=== PATIENT | female | born 2000 | race Caucasian/White ===

== ENCOUNTER → 2023-03-03 15:44 | Outpatient (CLI) | payer OTHER, SELFPAY ==
[2023-03-03 21:06] LABS: TSH w/ Reflex to FT4 0.71 uIU/mL (0.47-4.68)
[2023-03-05 10:38] LABS: Varicella IgG Antibody 843 index (Immune >165)
== END ==
PROVIDERS: Obstetrics & Gynecology; Referring Provider Specialist; Visit Provider Specialist
DX: O09.30 Supervision of pregnancy with insufficient antenatal care, unspecified trimester (principal); Z3A.00 Weeks of gestation of pregnancy not specified
CPT/HCPCS: 36415; 84443; 86787

== ENCOUNTER → 2023-03-13 13:16 | Outpatient (CLI) | payer OTHER, SELFPAY ==
[2023-03-13 14:36] LABS: Hematocrit 31.1 % (36-46)
[2023-03-13 15:01] LABS: GTT (PREG) 1 Hour PP 50gm Dose 88 mg/dL (76-139)
== END ==
PROVIDERS: Referring Provider Specialist; Visit Provider Specialist
DX: Z34.02 Encounter for supervision of normal first pregnancy, second trimester (principal); Z3A.27 27 weeks gestation of pregnancy; O26.899 Other specified pregnancy related conditions, unspecified trimester; Z67.91 Unspecified blood type, Rh negative
CPT/HCPCS: 36415; 82950; 85014; 85018; 86850

== ENCOUNTER → 2023-04-26 15:02 | Outpatient (CLI) | payer OTHER, SELFPAY | PROVIDERS: Visit Provider Obstetrics & Gynecology | DX: Z34.00 Encounter for supervision of normal first pregnancy, unspecified trimester (principal); Z3A.34 34 weeks gestation of pregnancy | CPT/HCPCS: 87086 ==

== ENCOUNTER 2023-05-06 16:25 | Observation (INO) | payer OTHER, SELFPAY ==
[2023-05-06 16:56] LABS: Add Manual Diff / Slide Review NO; Basophils Absolute Auto 0 /uL (0-100); Basophils Percent Auto 0.3 % (0-2); Eosinophils Absolute Auto 0 /uL (0-450); Eosinophils Percent Auto 0.5 % (2-4); Hemoglobin 11.2 g/dL (12.0-16.0); Lymphocytes Absolute Auto 1900 /uL (1100-4500); Lymphocytes Percent Auto 18.9 % (25-40); Mean Corpuscular HGB Conc 35.1 % (30-36); Mean Corpuscular Hemoglobin 32.2 PG (26-34); Mean Corpuscular Volume 91.6 fL (80-100); Monocytes Absolute Auto 1000 /uL (0-900); Monocytes Percent Auto 10.2 % (3-14); Neutrophils Absolute Auto 7300 /uL (1500-7000); Neutrophils Percent Auto 70.1 % (50-75); Platelet Count 258 X10^3/uL (150-400); Red Blood Cell Count 3.49 X10^6/uL (4.0-5.2); Red Cell Distribution Width 13.4 % (11.6-14.8); White Blood Cell Count 10.3 X10^3/uL (4.5-11.0)
[2023-05-06 17:08] LABS: Appearance Urine UA CLEAR; Bilirubin Urine UA NEGATIVE (NEGATIVE); Color Urine UA YELLOW; Glucose Urine UA NEGATIVE (Negative); Ketones Urine UA NEGATIVE (NEGATIVE); Leukocyte Esterase Urine UA NEGATIVE (NEGATIVE); Nitrite Urine UA NEGATIVE (Negative); Occult Blood Urine UA NEGATIVE (Negative); Protein Urine UA NEGATIVE (Negative); Specific Gravity Urine UA <=1.005 (1.000-1.035); Urobilinogen Urine UA 0.2 E.U./dL (0.2)
[2023-05-06 17:10] LABS: Aspartate Aminotransferase 18 IU/L (14-36); Blood Urea Nitrogen 3 mg/dL (7-17); Estimated Glomerular Filt Rate > 60 mL/min (>60); Uric Acid 3.7 mg/dL (2.5-6.2)
[2023-05-06 17:11] LABS: Creatinine Urine Random 57.8 mg/dL; Protein (Total) Urine Random 14 mg/dL (0-12); Protein Creatinine Ratio Urine 0.24 GRAM/24H
[2023-05-06 17:13] LABS: Alanine Aminotransferase 16 IU/L (<35); Albumin 3.3 g/dL (3.5-5.0); Alkaline Phosphatase 138 U/L (38-126); Aspartate Aminotransferase 18 IU/L (14-36); BUN Creatinine Ratio 6.8 (6-22); Bilirubin Total 0.3 mg/dL (0.2-1.3); Blood Urea Nitrogen 3 mg/dL (7-17); Calcium 8.6 mg/dL (8.4-10.2); Carbon Dioxide 23 mmol/L (22-32); Chloride 106 mmol/L (98-107); Estimated Glomerular Filt Rate > 60 mL/min (>60); Globulin 3.2 g/dL (1.7-4.1); Glucose 84 mg/dL (70-100); HEMOLYSIS < 15 (0-50); Potassium 3.8 mmol/L (3.4-5.1); Sodium 136 mmol/L (137-145); Total Protein 6.5 g/dL (6.3-8.2)
[2023-05-06 17:16] LABS: pH Urine UA 6.5 (4.5-8.0)
[2023-05-06 17:47] LABS: RBC Urine 1-5/HPF (0-5/HPF); WBC Urine 1-5/HPF (0-5/HPF)
[2023-05-06 17:48] LABS: Bacteria Urine Few (2-10); Culture Indicated Urine Cult Not Indicated; Squamous Epithelial Cell Urine 10-30 /HPF (0-5/HPF); Transitional Epi Cells Urine 1-5/HPF (0-5/HPF)
[2023-05-06] MEDS: ACETAMINOPHEN 325 MG TABLET 975 MG PO (18:12)
--- NOTE | 2023-05-06 18:40 | PM.OBTRLD ---
Visit Information Visit Information Date of evaluation: 05/06/23 Primary OB Provider: Yeyo Martinez On-call OB Provider: Yeyo Martinez Reason for Evaluation: Yes other Comments/Additional reasons for admission: D[place] present to the [facility] [place] 2[place] now at 36+2 wks EGA for evaluation of persistent headache and increased swelling. She denies any visual changes or right upper quadrant pain. Discussions with the patient regarding sodium consumption have not altered her dietary intake and we again had a discussion that as long as she continues to take in significant amounts of sodium in her diet, she can expect swelling. She apparently has an for [place] fries and had biscuits and gravy breakfast this morning. Her baby remains active and she denies contractions, bleeding, or change in her discharge. Vital Signs Vital Signs: BP: 120/60, 129/74 P: 76 T: 36.5C PFS Medical History (Updated 05/06/23 @ 18:50 by Yeyo Martinez MD) Acne Anxiety Depression Surgical History (Updated 03/10/23 @ 18:32 by China Chowdary) Anesthesia [place] teeth extracted Family History (Updated 03/10/23 @ 18:33 by Cihna Chowdary) Mother No problems noted. Father No problems noted. Grandfather No problems noted. Social History marital status: number of children: 0 household members: spouse lives independently: Yes caregiver/support person: No housing: [facility] ([facility]) pets and animals: Yes (cat, puppy) education level: vocational occupational status: unemployed current occupational exposures/hazards: No special adolph needs: No travel history: recent (cross-country move) seatbelt use: sometimes water heater temp set < 120 deg: Yes working smoke detector in home: Yes fire extinguisher in home: No carbon monox detector in home: Yes firearms in home: No Smoking Status: Former smoker (stopped vaping when she learned she was ) Tobacco: How many years used: 5 (off and on) second hand exposure: Yes ( vapes) alcohol intake: former (binge drinking 3-4 days/week prior to ) substance use type: marijuana (agrees not to use while /) during the past year weight has: remained stable well-balanced diet: about half the time daily servings fruits/ve-4 caffeine: Yes (occasional small cup coffee in AM) Type(s) of exercise: walking frequency: 1-2 times per week Review of Systems Review of Systems Narrative: Problem-specific ROS positives included in HPI Exam HENMT Head: normal to inspection, normocephalic and atraumatic Eyes General: appearance normal, both eyes and all related structures Resp Effort & Inspection: normal respiratory effort and able to speak in complete sentences Extrem Right lower extremity: normal to inspection and edema Details: 1+ Left lower extremity: normal to inspection and edema Details: 1+ Psych Appearance: grossly normal Mental Status: mental status grossly normal Speech and Movement: speech and movement normal Mood: congruent mood Affect: normal affect Attitude: cooperative Thought Process: normal Thought Content: normal Judgment: judgment good Objective Labs 05/06/23 16:48 05/06/23 16:48 Labs: Laboratory Results - last 24 hr 05/06/23 05/06/23 05/06/23 16:35 16:35 16:48 WBC 10.3 RBC 3.49 L Hgb 11.2 L Hct 32.0 L MCV 91.6 MCH 32.2 MCHC 35.1 RDW 13.4 Plt Count 258 Neut % (Auto) 70.1 Lymph % (Auto) 18.9 L [place] % (Auto) 10.2 Eos % (Auto) 0.5 L Baso % (Auto) 0.3 Neut # (Auto) 7300 H Lymph # (Auto) 1900 [place] # (Auto) 1000 H Eos # (Auto) 0 Baso # (Auto) 0 Sodium Potassium Chloride Carbon Dioxide BUN Creatinine Estimated GFR BUN/Creatinine Ratio Glucose Uric Acid Calcium Total Bilirubin AST ALT Alkaline Phosphatase Total Protein Albumin Globulin Albumin/Globulin Ratio Urine Color Yellow Urine Appearance Clear Urine pH 6.5 Ur Specific [place] <=1.005 Urine Protein Negative Urine Glucose (UA) Negative Urine Ketones Negative Urine Occult Blood Negative Urine Nitrate Negative Urine Bilirubin Negative Urine Urobilinogen 0.2 Ur Leukocyte Esterase Negative Urine RBC 1-5/hpf Urine WBC 1-5/hpf Ur Squamous Epith Cells 10-30 /hpf H Ur Transition Epith Cell 1-5/hpf Urine Bacteria Few (2-10) H Ur Culture Indicated? Cult not indicated U Random Total Protein 14 H Urine Creatinine 57.8 Protein/Creatinin Ratio 0.24 05/06/23 05/06/23 16:48 16:48 WBC RBC Hgb Hct MCV MCH MCHC RDW Plt Count Neut % (Auto) Lymph % (Auto) [place] % (Auto) Eos % (Auto) Baso % (Auto) Neut # (Auto) Lymph # (Auto) [place] # (Auto) Eos # (Auto) Baso # (Auto) Sodium 136 L Potassium 3.8 Chloride 106 Carbon Dioxide 23 BUN 3 L 3 L Creatinine 0.43 L 0.44 L Estimated GFR > 60 > 60 BUN/Creatinine Ratio 7.0 6.8 Glucose 84 Uric Acid 3.7 Calcium 8.6 Total Bilirubin 0.3 AST 18 18 ALT 16 Alkaline Phosphatase 138 H Total Protein 6.5 Albumin 3.3 L Globulin 3.2 Albumin/Globulin Ratio 1.0 Urine Color Urine Appearance Urine pH Ur Specific [place] Urine Protein Urine Glucose (UA) Urine Ketones Urine Occult Blood Urine Nitrate Urine Bilirubin Urine Urobilinogen Ur Leukocyte Esterase Urine RBC Urine WBC Ur Squamous Epith Cells Ur Transition Epith Cell Urine Bacteria Ur Culture Indicated? U Random Total Protein Urine Creatinine Protein/Creatinin Ratio Evaluation Evaluation Baseline heart rate: 130 Variability: Marked (>25) monitor accelerations: Present Monitor Decelerations: Absent Diagnosis, Plan/Disposition Final Diagnosis (1) Headache in , antepartum: Status: Acute (2) Leg swelling in in third trimester: Status: Acute Plan/Disposition Plan: BP and PIH/PEC labs all normal. Counselled again re: Na intake Follow-up scheduled for 05/10/2023 OB Disposition: home
== END 2023-05-06 18:40 | disposition home or self-care (01) ==
LOC: LABOR 16:29
PROVIDERS: Admitting Provider Obstetrics & Gynecology; Referring Provider Obstetrics & Gynecology; Visit Provider Obstetrics & Gynecology
DX: O26.893 Other specified pregnancy related conditions, third trimester (principal); M79.89 Other specified soft tissue disorders; R51.9 Headache, unspecified; Z3A.36 36 weeks gestation of pregnancy
CPT/HCPCS: 36415; 59025; 59050; 80053; 81001; 82570; 84156; 84450; 84550; 85025; G0378; G0379

== ENCOUNTER → 2023-05-12 15:30 | Outpatient (CLI) | payer OTHER, SELFPAY ==
[2023-05-13 15:03] LABS: Strep Grp B PCR NEG for Grp B Strep
== END ==
PROVIDERS: Visit Provider Obstetrics & Gynecology
DX: Z34.93 Encounter for supervision of normal pregnancy, unspecified, third trimester (principal); Z3A.37 37 weeks gestation of pregnancy
CPT/HCPCS: 87653

== ENCOUNTER 2023-05-15 11:17 | Inpatient (IN) | payer OTHER, SELFPAY ==
--- NOTE | 2023-05-15 12:10 | P.HPOB_ITS ---
OB HPI Date/Time Date of admission: 05/15/23 Date Patient Seen: 05/15/23 Time Patient Seen: 12:10 History of Present Condition Chief complaint: labor : 1 Para: 0 Estimated Date of Delivery: 06/01/23 Estimated Gestational Age (weeks): 37 Narrative: Leah Madrid is a 22 year old female who presents to labor and delivery with spontaneous rupture membranes at 10:40 a.m. in early labor. History of Present care: limited care, initiated at week # (19), number of visits (9) and pounds weight gain (45) Dating criteria: LMP confirmed by 2nd trimester US Ultrasounds: normal mid trimester US Obstetrical complications: none Medical complications: none Preadmission Labs Blood type: A (-) negative -: Antibody screen: negative, GBS status: negative, HBsAG: negative, HIV: negative and RPR/VDLR: negative -: Chlamydia screen: not detected and Gonorrhea screen: not detected -: Rubella: immune and Varicella: immune HCAB: negative Cell-free DNA: Normal female 1 hr GTT: 88 Evaluation Evaluation Baseline heart rate: 140 Variability: Moderate (11-25) monitor accelerations: Present Monitor Decelerations: Absent Contraction Frequency (minutes): 8 Uterine Contraction Intensity: Moderate Category of Tracing: Reactive Status: Category l Dilation (cm): 2 Effacement (%): 70 station: -2 Non-invasive Membranes Rupture Test: positive PFSH Medical History (Updated 05/12/23 @ 15:48 by Yeyo Martinez MD) Acne Anxiety Depression Surgical History (Updated 03/10/23 @ 18:32 by China Chowdary) Anesthesia [place] teeth extracted Family History (Updated 03/10/23 @ 18:33 by China Chowdary) Mother No problems noted. Father No problems noted. Grandfather No problems noted. Social History marital status: number of children: 0 household members: spouse lives independently: Yes caregiver/support person: No housing: condominium ([facility]) pets and animals: Yes (cat, puppy) education level: vocational occupational status: unemployed current occupational exposures/hazards: No special adolph needs: No travel history: recent (cross-country move) seatbelt use: sometimes water heater temp set < 120 deg: Yes working smoke detector in home: Yes fire extinguisher in home: No carbon monox detector in home: Yes firearms in home: No Smoking Status: Former smoker Tobacco: How many years used: 5 (off and on) second hand exposure: Yes ( vapes) alcohol intake: former (binge drinking 3-4 days/week prior to ) substance use type: marijuana (agrees not to use while /) during the past year weight has: remained stable well-balanced diet: about half the time daily servings fruits/ve-4 caffeine: Yes (occasional small cup coffee in AM) Type(s) of exercise: walking frequency: 1-2 times per week Meds Home Medications and Allergies Home Medications Medication Instructions Recorded Confirmed Type prenat.vits,atif,ncg-irbe-dudua 1 tab PO DAILY 02/22/23 05/15/23 History calcium carbonate 200 mg calcium 200 mg PO QID PRN Heartburn 04/12/23 05/15/23 History (500 mg) chewable tablet (Tums) omeprazole 40 mg capsule,delayed 40 mg PO DAILY #30 caps 04/26/23 05/15/23 Rx release Allergies Allergy/AdvReac Type Severity Reaction Status Date / Time No Known Drug Allergies Allergy Verified 05/15/23 13:06 Review of Systems Review of Systems Narrative: Patient denies headaches, scotomata, epigastric pain. Some light pink with discharge after rupture membranes. Good movement. No fevers. OB Exam Vital signs Blood Pressure: 137/82 Pulse Rate: 85 Temperature: 96.4 F Narrative Exam Narrative: HEENT exam within normal limits. Lungs are clear to auscultation percussion. Heart is regular rate and rhythm no S3-S4 murmurs. Abdomen is soft, nontender. Fetus is vertex. Extremities without edema and nontender. Objective Labs 05/15/23 12:40 Assessment and Plan Assessment and Plan Assessment and Plan narrative: 37 week 4 day 1st with spontaneous rupture membranes. Not clearly in active labor at this time. If the patient has not started into active labor in a few hours we will start Pitocin augmentation.
[2023-05-15 12:41] VITALS: BP 126/60
[2023-05-15 12:52] LABS: Add Manual Diff / Slide Review NO; Basophils Absolute Auto 100 /uL (0-100); Basophils Percent Auto 0.4 % (0-2); Eosinophils Absolute Auto 0 /uL (0-450); Eosinophils Percent Auto 0.3 % (2-4); Hematocrit 33.9 % (36-46); Hemoglobin 11.8 g/dL (12.0-16.0); Lymphocytes Absolute Auto 2200 /uL (1100-4500); Lymphocytes Percent Auto 16.6 % (25-40); Mean Corpuscular HGB Conc 34.8 % (30-36); Mean Corpuscular Hemoglobin 31.2 PG (26-34); Mean Corpuscular Volume 89.8 fL (80-100); Monocytes Absolute Auto 1000 /uL (0-900); Monocytes Percent Auto 7.3 % (3-14); Neutrophils Absolute Auto 10000 /uL (1500-7000); Neutrophils Percent Auto 75.4 % (50-75); Platelet Count 264 X10^3/uL (150-400); Red Blood Cell Count 3.77 X10^6/uL (4.0-5.2); Red Cell Distribution Width 13.4 % (11.6-14.8); White Blood Cell Count 13.2 X10^3/uL (4.5-11.0)
[2023-05-15 13:22] VITALS: BP 137/82; PULSE 85; TEMP 35.8
[2023-05-15] MEDS: LACTATED RINGERS 1,000 ML 100 ML IV ×2 (15:31→19:49)
[2023-05-15] MEDS: OXYTOCIN PREMIX 30 UNIT/500 ML PLAST..BAG IV (15:31)
[2023-05-15 15:32] LABS: Add Manual Diff / Slide Review NO; Basophils Absolute Auto 100 /uL (0-100); Basophils Percent Auto 0.4 % (0-2); Eosinophils Absolute Auto 0 /uL (0-450); Eosinophils Percent Auto 0.2 % (2-4); Hematocrit 33.6 % (36-46); Hemoglobin 11.7 g/dL (12.0-16.0); Lymphocytes Absolute Auto 2300 /uL (1100-4500); Lymphocytes Percent Auto 17.6 % (25-40); Mean Corpuscular HGB Conc 34.9 % (30-36); Mean Corpuscular Hemoglobin 31.4 PG (26-34); Mean Corpuscular Volume 90.1 fL (80-100); Monocytes Absolute Auto 900 /uL (0-900); Monocytes Percent Auto 7.1 % (3-14); Neutrophils Absolute Auto 9800 /uL (1500-7000); Neutrophils Percent Auto 74.7 % (50-75); Platelet Count 267 X10^3/uL (150-400); Red Blood Cell Count 3.72 X10^6/uL (4.0-5.2); Red Cell Distribution Width 13.4 % (11.6-14.8); White Blood Cell Count 13.1 X10^3/uL (4.5-11.0)
[2023-05-15 15:47] LABS: Aspartate Aminotransferase 22 IU/L (14-36); Blood Urea Nitrogen 3 mg/dL (7-17); Estimated Glomerular Filt Rate > 60 mL/min (>60); Uric Acid 3.9 mg/dL (2.5-6.2)
[2023-05-15] MEDS: fentaNYL 100 MCG/2 ML INJ IV ×3 (17:17→19:57)
--- NOTE | 2023-05-15 20:32 | PM.OBPNLAB ---
Date/Time Date Patient Seen: 05/15/23 Time Patient Seen: 20:32 Pain Control Pain control: epidural Pelvic Exam Dilation (cm): 8 Effacement (%): 90 station: 0 Amniotic membrane status: Ruptured Contractions Contractions on admission: regular Monitor mode: External Pitocin rate (mU/min): 5 Contraction frequency (min): 3 Contraction duration (min): 1 Contraction pattern: Regular Contraction intensity: Strong/Firm Status status: Category l Heart Rate Baseline: 130 Monitor Accelerations: Present Monitor Decelerations: Absent Monitor Variability: Moderate Assessment and Plan Assessment: active labor Plan: continuous present management Comments: Patient denies headaches, scotomata, epigastric pain. PIH labs are normal.
--- NOTE | 2023-05-15 23:24 | P.PCNOB_ITS ---
Labor & Delivery Delivery date: 05/15/23 Intrapartal Events: None Delivery augmentation: pitocin Delivery monitor: external FHT and external uterine Route of delivery: L&D Laceration Description: Perineal - 1st Degree and Labial (Right did not require suture) Delivery repair: chromic (3-0) Estimated blood loss (mL): 200 Anesthesia Type: Epidural Narrative: Patient arrived on Labor and delivery with spontaneous rupture membranes. She did not go into active labor after 4 hours so Pitocin augmentation was started. Patient received nitrous oxide followed by epidural for pain control. heart tones category 1 to category 2 throughout labor. She progressed to complete and pushing. There were variable decelerations with pushing but overall baby's heart rate remained reassuring. Patient delivered spontaneously, over an intact perineum. The viable female was placed on maternal abdomen. Delayed cord clamping was performed. After the cord was clamped and cut cord bloods were obtained. The placenta delivered spontaneously, intact, with 3 vessels. There were no cervical or vaginal tears. A first-degree perineal midline tear was repaired with 3-0 chromic suture. A superficial right labial tear did not require suturing. Estimated blood loss 200 cc. Both infant mother doing well. [place] Baby 1: gender: Female Presentation: vertex Position: Right Occiput Posterior Placenta delivery description: Spontaneous Cord Vessel Description: 3 Vessels score (1 min): 9 score (5 min): 9 weight: 6 lb 1 oz Plan for aftercare: Routine care
[2023-05-15] MEDS: IBUPROFEN 600 MG TABLET PO (23:53)
--- NOTE | 2023-05-16 05:24 | P.PCN_ITS ---
Regional Block Pre-procedure PMH/ROS narrative: negative PMH, healthy , Labs: Hct 33.6 % (36-46) L 05/15/23 15:23 Plt Count 267 X10^3/uL (150-400) 05/15/23 15:23 Medications: Current Medications Generic Name Dose Route Start Last Admin Trade Name Freq PRN Reason Stop Dose Admin Acetaminophen 650 mg 05/15/23 23:28 Acetaminophen 325 Mg Tablet PO Q6HR PRN Pain, Mild (1-3) Benzocaine 1 spray 05/15/23 23:28 Dermoplast [place] 20% 60 Ml TOP Q1HR PRN perineal pain Carboprost Tromethamine 250 mcg 05/15/23 23:28 Carboprost 250 Mcg/Ml Ampul IM Q90MIN PRN Bleeding Emollient Ointment 1 applic 05/15/23 23:28 Lanolin Oint 7 Gm TOP PRN PRN Tenderness Tranexamic Acid 1,000 mg/ 100 mls @ 200 mls/hr 05/15/23 23:28 Sodium Chloride IV NOW PRN Bleeding Oxytocin/Lactated Ringer's 30 unit in 500 mls @ 200 mls/hr 05/15/23 23:28 Oxytocin Premix IV CONT PRN Bleeding Protocol Ibuprofen 600 mg 05/15/23 23:28 05/15/23 23:53 Ibuprofen 600 Mg Tablet PO 600 mg Q6HR PRN Administration Pain, Mild (1-3) Methylergonovine Maleate 0.2 mg 05/15/23 23:28 Methylergonovine 0.2 Mg/Ml Vial IM NOW PRN Bleeding Methylergonovine Maleate 0.2 mg 05/15/23 23:28 Methylergonovine 0.2 Mg Tablet PO Q6HR PRN Heavy bleeding Misoprostol 400 mcg 05/15/23 23:28 Misoprostol 200 Mcg Tablet SL NOW PRN Bleeding Misoprostol 1,000 mcg 05/15/23 23:28 Misoprostol 200 Mcg Tablet MA NOW PRN Bleeding Misoprostol 800 mcg 05/15/23 23:28 Misoprostol 200 Mcg Tablet MA NOW PRN Bleeding Naloxone HCl 0.2 mg 05/15/23 23:28 Naloxone 0.4 Mg/Ml Vial IV Q2MIN PRN Opiate Reversal Oxytocin 10 unit 05/15/23 23:28 Oxytocin 10 Unit/Ml Vial IM NOW PRN Bleeding Vit/Calcium/Iron/Folic Ac 1 tab 05/16/23 09:00 Vit,Calc/Iron/Folic 1 Tablet PO DAILY SEEMA Rho Immune Globulin 1,500 unit 05/15/23 23:28 Rho(D) Immune Globulin 1,500 Unit Syringe IM NOW PRN Mom Rh neg, Rh pos Allergies: Allergies Allergy/AdvReac Type Severity Reaction Status Date / Time No Known Drug Allergies Allergy Verified 05/15/23 13:06 Procedure Insertion date: 05/15/23 Insertion time: 20:18 Prep/Local: betadine x3 Interspace: L3-4 Patient position: sitting Needle: 17 gauge Tuohy Loss of resistance with: saline AUGUSTINA at (cm): 8 Catheter placed at SKIN (cm): 13 Catheter in SPACE (cm): 5 Sensory level: T8 Insertion: No CSF, No Blood, No Paresthesia with insertion, No Paresthesia with injection and No Test dose reaction Initial Medications TEST DOSE time: 20:21 BOLUS DOSE time: 20:24 BOLUS DOSE (mL): 8 BOLUS DOSE med: 0.25% bupivacaine Infusion INFUSION: 0.125% bupivacaine and with fentanyl 2 mcg/mL Initial rate (mL/hr): 10 Subsequent interventions: initial dosage also with fentanyl 100mcg in epidural - Post-procedure Anesthesia time START: 20:10 Anesthesia time END: 23:15 Post-procedure Anesthesia Assessment: No CV function: HR/BP stable, No Resp function: RR/sat/airway adequate, No Post-op hydration adequate, No Pain control adequate, No Nausea & vomiting absent, No Temperature > 36 C, No Mental status appropriate and No Anesthesia complications
[2023-05-16 07:00] VITALS: BP 119/73; PULSE 101; RESP 16; TEMP 37.1
[2023-05-16 07:25] LABS: Add Manual Diff / Slide Review NO; Basophils Absolute Auto 100 /uL (0-100); Basophils Percent Auto 0.5 % (0-2); Eosinophils Absolute Auto 100 /uL (0-450); Eosinophils Percent Auto 0.4 % (2-4); Hematocrit 33.6 % (36-46); Hemoglobin 11.7 g/dL (12.0-16.0); Lymphocytes Absolute Auto 3500 /uL (1100-4500); Lymphocytes Percent Auto 20.3 % (25-40); Mean Corpuscular HGB Conc 34.8 % (30-36); Mean Corpuscular Hemoglobin 31.3 PG (26-34); Monocytes Absolute Auto 1600 /uL (0-900); Monocytes Percent Auto 9.2 % (3-14); Neutrophils Absolute Auto 12000 /uL (1500-7000); Neutrophils Percent Auto 69.6 % (50-75); Platelet Count 262 X10^3/uL (150-400); Red Blood Cell Count 3.73 X10^6/uL (4.0-5.2); Red Cell Distribution Width 13.3 % (11.6-14.8); White Blood Cell Count 17.2 X10^3/uL (4.5-11.0)
--- NOTE | 2023-05-16 17:11 | PM.OBPN.1 ---
Subjective - OB Subjective Patient comments: no complaints, pain well controlled, tolerating diet and flatus present baby status: doing well and nursing well [place] feeding status: exclusively breast feeding Narrative: Mother and baby both doing well PPD #1 following last evening Date Patient Seen: 05/16/23 Time Patient Seen: 17:12 Exam Const General: cooperative and comfortable Nutritional Appearance: average body habitus Orientation: alert and oriented x3 HENMT Head: normal to inspection, atraumatic and abrasion Ears: hearing grossly normal bilaterally Face and sinus: face symmetric Eyes General: appearance normal, both eyes and all related structures Conjunctivae: conjunctivae normal Sclera: sclerae normal EOM: EOM intact bilaterally Neck Neck: normal visual inspection Resp Effort & Inspection: normal respiratory effort and able to speak in complete sentences External Female Exam: other (No significant bleeding noted) Extrem General: no calf tenderness Psych Appearance: grossly normal Mental Status: mental status grossly normal Speech and Movement: speech and movement normal Mood: congruent mood Affect: normal affect Attitude: cooperative Thought Process: normal Thought Content: normal Judgment: judgment good Objective Labs 05/16/23 07:14 05/15/23 15:23 Labs: Laboratory Results - last 24 hr 05/16/23 05/16/23 07:14 07:14 WBC 17.2 H RBC 3.73 L Hgb 11.7 L Hct 33.6 L MCV 90.0 MCH 31.3 MCHC 34.8 RDW 13.3 Plt Count 262 Neut % (Auto) 69.6 Lymph % (Auto) 20.3 L [place] % (Auto) 9.2 Eos % (Auto) 0.4 L Baso % (Auto) 0.5 Neut # (Auto) 72574 H Lymph # (Auto) 3500 [place] # (Auto) 1600 H Eos # (Auto) 100 Baso # (Auto) 100 Maternal Bleed Negative Assessment & Plan Plan day: 1 plan OB: routine care Comments: Anticipate DC in AM Time Spent With Patient Time: Total time spent is greater than 50% in coordination of care (as documented) at patient's floor/unit and/or counseling patient: Time with patient: less than 15 minutes
[2023-05-16] MEDS: RHO(D) IMMUNE GLOBULIN 1,500 UNIT SYRINGE 1500 UNIT IM (18:34)
[2023-05-16] MEDS: IBUPROFEN 600 MG TABLET PO (22:44)
[2023-05-16] MEDS: ACETAMINOPHEN 325 MG TABLET 650 MG PO (22:45)
--- NOTE | 2023-05-17 08:11 | PM.OBDS.1 ---
Discharge Providers Provider Date of admission: 05/15/23 11:17 Discharge Date: 05/17/23 Primary care physician: Lena FREGOSO Provider Consults: 05/15/23 12:08 Consult to Anesthesiology Urgent Comment: Consulting Provider: Anesthesiologist Reason for consultation: Epidural 05/16/23 23:22 Consult to Research And Development Tester Routine Comment: Discharge provider: Yeyo Martinez MD Summary Hospital Course Date Patient Seen: 05/17/23 Time Patient Seen: 08:11 Diagnoses: Intrauterine gestation, [place], 37+ 4 weeks gestational age, delivered by spontaneous vaginal Hospital Course: Leah was admitted on the morning of 05/15/2023 in early labor and progressed well with an epidural in place delivering on the evening 05/15/2023 a viable female with Apgars of 8/9 and a weight of 3692 g (8 lb 2.2 oz). Following delivery both mother and baby have done extremely well with mother experiencing prompt return of bowel and bladder function, she is ambulating independently, tolerating regular diet, and her pain is well controlled with oral pain medications. She is discharged at this time to home in an afebrile normotensive condition after counseling regarding precautionary symptoms, limitations of activity, medications, and plans for follow-up which will be in 6 weeks. Medications at discharge will include resumption of all pre delivery medications as well as docusate 100 mg p.o. b.i.d. as needed constipation, and ibuprofen 600 mg p.o. q.6 hours as needed pain. Peripartum Data Delivery Method: Natural Vaginal Laceration Description: Perineal - 1st Degree and Perineal - 2nd Degree Episiotomy description: None Procedures: Continuous lumbar epidural Spontaneous vaginal complications: none [place] 1: Gender: Female Disposition of : home Status at Discharge Cognitive/behavioral status at discharge: oriented Functional status at discharge: independent ambulation Overall status at discharge: patient is progressing back to baseline Time Spent with Patient Time attestation: Total time spent providing and/or coordinating discharge services: Time spent: Less than 30 minutes Objective Labs 05/16/23 07:14 05/15/23 15:23 Labs: Laboratory Results - last 24 hr 05/16/23 07:14 Maternal Bleed Negative Exam Vital Signs (past 8 hours): BP: 123/67 P: 53 T: 97.5F Const General: cooperative and comfortable Nutritional Appearance: average body habitus Orientation: alert and oriented x3 HENMT Head: normal to inspection, atraumatic and abrasion Ears: hearing grossly normal bilaterally Face and sinus: face symmetric Eyes General: appearance normal, both eyes and all related structures Conjunctivae: conjunctivae normal Sclera: sclerae normal EOM: EOM intact bilaterally Neck Neck: normal visual inspection Resp Effort & Inspection: normal respiratory effort and able to speak in complete sentences GI Inspection: normal to inspection Palpation: soft and no hepatosplenomegaly External Female Exam: other (No significant bleeding noted) Extrem General: no calf tenderness Psych Appearance: grossly normal Mental Status: mental status grossly normal Speech and Movement: speech and movement normal Mood: congruent mood Affect: normal affect Attitude: cooperative Thought Process: normal Thought Content: normal Judgment: judgment good Discharge Plan Discharge Plan Patient Disposition: Home Provider Discharge Comment: Please review the written instructions you received when you were discharged from the hospital. Your follow-up appointment is scheduled for 6 weeks after delivery and I look forward to seeing you then. If however in the meanwhile you have any issues, concerns, or questions, please contact me either through the office phone at [phone], or via the patient portal. Discharge orders & Medications Prescriptions: New ibuprofen 600 mg Tablet 600 mg PO Q6HR PRN (Reason: Pain, Mild (1-3)) Qty: 60 2RF docusate sodium 100 mg capsule 100 mg PO BID PRN (Reason: constipation) Qty: 30 0RF Continued prenat.vits,atif,qsp-gjth-jewif Tablet 1 tab PO DAILY calcium carbonate [Tums] 200 mg calcium (500 mg) tablet,chewable 200 mg PO QID PRN (Reason: Heartburn) omeprazole 40 mg capsule,delayed release(DR/EC) 40 mg PO DAILY Qty: 30 12RF Follow up/Referrals: Yeyo Martinez MD [Physician] - 06/26/23 9:30 am (Appointment with on at 9:30 am for check.) Discharge Health Status Multidrug resistant organism: No MDRO Diet/Activity/Treatments Diet: Diet as Tolerated Activity: As tolerated Skin/Wound/Dressing Care Report to your healthcare provider any signs of infection, such as:: chills, fever, increased pain, unusual drainage and unusual redness Dressing: N/A Visit Report/Discharge Packet Instructions: DI for Labor and Delivery, Vaginal , DI for and Nipple Soreness Stand Alone Forms: Patient Portal/API, Stroke Signs & Symptoms Discharge Data Primary Care Provider: Lena Almaraz Discharges patient from system. Discharge Date/Time: 05/17/23 11:23
[2023-05-17] MEDS: PRENATAL VIT,CALC/IRON/FOLIC 1 TABLET 1 TAB PO (09:00)
== END 2023-05-17 11:23 | disposition home or self-care (01) | DRG 807 ==
PROVIDERS: Specialist; Admitting Provider Obstetrics & Gynecology; Referring Provider Obstetrics & Gynecology; Visit Provider Obstetrics & Gynecology
DX: O63.0 Prolonged first stage (of labor) (principal); Z37.0 Single live birth; O70.0 First degree perineal laceration during delivery; Z3A.37 37 weeks gestation of pregnancy
CPT/HCPCS: 36415; 59050; 59410; 84450; 84550; 85025; 85461; 86850; 86870; 86900; 86901; G0379; J2590; J2790; J3010

== ENCOUNTER 2025-04-27 13:01 | Emergency (ER) | payer OTHER, SELFPAY ==
[2025-04-27 13:08] VITALS: BP 135/83; PULSE 89; RESP 16; TEMP 36.7; O2SAT 99; BMI 24.5
--- NOTE | 2025-04-27 13:12 | ED.GENADULT ---
HPI - General Adult General Chief complaint: Urogenital-Female Stated complaint: UTI t-3 Time Seen by Provider: 04/27/25 13:01 Source: patient Mode of arrival: Ambulatory History of Present Illness HPI narrative: Otherwise healthy 24-year-old woman comes in with 3 days of dysuria that is not improving. Her just returned from deployment. She is not describing any vaginal discharge, LMP was 7 days ago. No fevers, chills, abdominal pain, vomiting and no flank pain. Related Data Home Medications ?Medication ?Instructions ?Recorded ?Confirmed calcium carbonate (Tums) 200 mg PO QID PRN Heartburn 04/12/23 06/21/23 Previous Rx's ?Medication ?Instructions ?Recorded docusate sodium 100 mg capsule 100 mg PO BID PRN constipation #30 05/17/23 caps ibuprofen 600 mg tablet 600 mg PO Q6HR PRN Pain, Mild 05/17/23 (1-3) #60 tabs phenazopyridine 200 mg tablet 200 mg PO TID 6 doses #6 tabs 04/27/25 (Pyridium) sulfamethoxazole 400 1 tab PO BID #10 tabs 04/27/25 mg-trimethoprim 80 mg tablet (Bactrim) Allergies Allergy/AdvReac Type Severity Reaction Status Date / Time No Known Drug Allergies Allergy Verified 04/27/25 13:08 Review of Systems Review of Systems Narrative: Pertinent positive and negative findings as per HPI Patient History Medical History (Updated 04/27/25 @ 13:27 by Hina Pollard MD) Vaginal delivery (~05/15/23) Acne Rh negative state in antepartum period Depression Anxiety Surgical History (Updated 03/10/23 @ 18:32 by China Chowdary) Anesthesia [place] teeth extracted Family History (Updated 03/10/23 @ 18:33 by China Chowdary) Mother No problems noted. Father No problems noted. Grandfather No problems noted. Social History marital status: number of children: 0 household members: spouse lives independently: Yes caregiver/support person: No housing: condominium ([facility]) pets and animals: Yes (cat, puppy) education level: vocational occupational status: unemployed current occupational exposures/hazards: No special adolph needs: No travel history: recent (cross-country move) seatbelt use: sometimes water heater temp set < 120 deg: Yes working smoke detector in home: Yes fire extinguisher in home: No carbon monox detector in home: Yes firearms in home: No Tobacco: How many years used: 5 (off and on) second hand exposure: Yes ( vapes) alcohol intake: former (binge drinking 3-4 days/week prior to ) substance use type: marijuana (agrees not to use while /) during the past year weight has: remained stable well-balanced diet: about half the time daily servings fruits/ve-4 caffeine: Yes (occasional small cup coffee in AM) Type(s) of exercise: walking frequency: 1-2 times per week Smoking Status: Current every day smoker tobacco type: vaping Exam Initial Vital Signs Initial Vital Signs: Vital Signs Temperature 98.0 F 04/27/25 13:08 Pulse Rate 89 04/27/25 13:08 Respiratory Rate 16 04/27/25 13:08 Blood Pressure 135/83 04/27/25 13:08 Pulse Oximetry 99 04/27/25 13:08 Oxygen Delivery Method Room Air 04/27/25 13:08 General: Alert appropriate in no acute distress Respiratory: Able to speak in full sentences, no obvious respiratory distress Skin: No obvious rashes, warm and dry Neurologic: Grossly intact no obvious asymmetries or abnormalities Psych: appropriate insight and affect, cooperative Course Orders Ordered: ED Orders 04/27/25 13:08 UA Complete [Urinalysis and Microscopic] Stat Vital Signs Vital signs: Vital Signs - 8 hr 04/27/25 13:08 Temperature 98.0 F Pulse Rate 89 Respiratory Rate 16 Blood Pressure 135/83 Pulse Oximetry 99 Oxygen Delivery Method Room Air Medical Decision Making [facility] Narrative Medical decision making narrative: 24-year-old woman with dysuria, urinalysis shows blood nitrites leukocytes entirely consistent with acute urinary tract infection which is consistent with her history. No suggestion of pyelonephritis, sepsis, concern for STI is low. We will treat with Septra for 5 days, prescription for Pyridium is given. No indication for further workup or hospitalization she is safe for discharge Discharge Plan Departure Patient Disposition: Home Clinical Impression: UTI (urinary tract infection) Qualifiers: Urinary tract infection type: acute cystitis Hematuria presence: with hematuria Qualified Code(s): N30.01 - Acute cystitis with hematuria Instructions: DI for Urinary Tract Infection (UTI) Activity Restrictions/Additional Instructions: Thank you for coming in today You do have a bladder infection. Does not look like it is anything more complicated than that. I have given you a prescription for Septra, this is a sulfa drug, it is twice a day for 3 days. You were given the 1st dose in the emergency department I have also given you a prescription for Pyridium, this helps with bladder spasm in the pain. It turned your pee bright orange. If you have increasing symptoms, or your symptoms do not resolve with the antibiotics, develop a fever, increasing abdominal or flank pain you need to return to the emergency department Prescriptions: New sulfamethoxazole-trimethoprim [Bactrim] 400-80 mg tablet 1 tab PO BID Qty: 10 0RF phenazopyridine [Pyridium] 200 mg tablet 200 mg PO TID Qty: 6 0RF No Action calcium carbonate [Tums] 200 mg calcium (500 mg) tablet,chewable 200 mg PO QID PRN (Reason: Heartburn) ibuprofen 600 mg Tablet 600 mg PO Q6HR PRN (Reason: Pain, Mild (1-3)) Qty: 60 2RF docusate sodium 100 mg capsule 100 mg PO BID PRN (Reason: constipation) Qty: 30 0RF Referrals: Provider,Lena FREGOSO [Primary Care Provider, Family Practice] Stand Alone Forms: Patient Portal/API
[2025-04-27] MEDS: PHENAZOPYRIDINE 100 MG TABLET 200 MG PO (13:37)
[2025-04-27] MEDS: TRIMETH/SULFA 160/800 (DS) TABLET 1 TAB PO (13:38)
[2025-04-27 13:40] LABS: Appearance Urine UA CLOUDY; Bilirubin Urine UA NEGATIVE (NEGATIVE); Color Urine UA YELLOW; Glucose Urine UA NEGATIVE (Negative); Ketones Urine UA NEGATIVE (NEGATIVE); Leukocyte Esterase Urine UA 3+ (NEGATIVE); Nitrite Urine UA NEGATIVE (Negative); Occult Blood Urine UA 2+ (Negative); Protein Urine UA TRACE (Negative)
[2025-04-27 13:57] LABS: Bacteria Urine Moderate (10-30); RBC Urine None Seen (0-5/HPF); Squamous Epithelial Cell Urine 0-1 /HPF (0-5/HPF); Urine Volume 10mL (spun); WBC Urine 30-100/HPF (0-5/HPF)
[2025-04-27 13:58] LABS: Culture Indicated Urine Specimen Cultured
== END 2025-04-27 13:42 | disposition home or self-care (01) ==
PROVIDERS: Emergency Provider Emergency Medicine
DX: N30.01 Acute cystitis with hematuria (principal)
CPT/HCPCS: 81001; 81003; 87077; 87086; 87186; 99283

== ENCOUNTER 2025-06-07 15:32 | Emergency (ER) | payer OTHER, SELFPAY ==
[2025-06-07 15:46] VITALS: BP 123/77; PULSE 86; RESP 20; TEMP 36.6; O2SAT 100; BMI 25.4
--- NOTE | 2025-06-07 15:50 | DI.RAD.S_ITS ---
PROCEDURE: XR KNEE LT 3V INDICATIONS: knee pain TECHNIQUE: 3 views of the knee were acquired. COMPARISON: None. FINDINGS: Bones: No fractures or dislocations. No suspicious bony lesions. Soft tissues: No joint effusion. No suspicious soft tissue calcifications. IMPRESSION: No acute bony abnormality or significant effusion. Dictated by: Ramakrishna Murphy M.D. on 06/07/2025 at 15:23 Approved by: Ramakrishna Murphy M.D. on 06/07/2025 at 15:24
--- NOTE | 2025-06-07 17:10 | ED_ITS ---
HPI - Extremity Problem <Quynh Sands PA-C - Last Filed: 06/07/25 17:39> General Chief complaint: Extremity Problem,Nontraumatic Stated complaint: Severe knee pain/past 3 days Time Seen by Provider: 06/07/25 15:51 Source: patient Mode of arrival: Ambulatory History of Present Illness HPI Narrative: Ms. Madrid is a very pleasant 24-year-old female with no reported past medical history who presents to the emergency department for nontraumatic left knee pain x3 days. Patient states she woke up with medial left knee pain about 3 days ago. Pain has progressively gotten worse since then and this morning the pain was described as 10/10 causing her to cry and need to be carried by her . Her has a prescription for 800 mg ibuprofen which she has been taking and completely resolved the pain. She states her left knee felt normal when she went to bed 4 days ago. She has been exercising more recently and started running multiple miles and pushing herself but she denies an injury during any workout. Denies swelling, redness or skin change of the knee. No calf swelling or tenderness. Pain is worse with movement when she has not taking ibuprofen but pain is resolved and movement is not painful while taking ibuprofen. Reports that the pain occasionally travels to the back of her knee. Denies fevers, chills, swelling, flu-like symptoms. Related Data Home Medications ?Medication ?Instructions ?Recorded ?Confirmed calcium carbonate (Tums) 200 mg PO QID PRN Heartburn 04/12/23 06/21/23 Previous Rx's ?Medication ?Instructions ?Recorded docusate sodium 100 mg capsule 100 mg PO BID PRN const ipation #30 05/17/23 caps ibuprofen 600 mg tablet 600 mg PO Q6HR PRN Pain, Mil d 05/17/23 (1-3) #60 tabs phenazopyridine 200 mg tablet 200 mg PO TID 6 doses #6 tabs 04/27/25 (Pyridium) sulfamethoxazole 400 1 tab PO BID #10 tabs mg-trimethoprim 80 mg tablet (Bactrim) ibuprofen 800 mg tablet 800 mg PO Q8H PRN pain #30 t abs 06/07/25 Allergies Allergy/AdvReac Type Severity Reaction Status Date / Time No Known Drug Allergies Allergy Verified 06/07/25 15:46 Review of Systems <Quynh Sands PA-C - Last Filed: 06/07/25 17:39> Review of Systems ROS Unobtainable: All systems reviewed & are unremarkable except as noted in HPI and below Patient History <Quynh Sands PA-C - Last Filed: 06/07/25 17:39> Medical History Vaginal delivery (~05/15/23) Acne Rh negative state in antepartum period Depression Anxiety Surgical History Anesthesia [place] teeth extracted Family History Mother No problems noted. Father No problems noted. Grandfather No problems noted. Social History marital status: number of children: 0 household members: spouse lives independently: Yes caregiver/support person: No housing: condominium ([facility]) pets and animals: Yes (cat, puppy) education level: vocational occupational status: unemployed current occupational exposures/hazards: No special adolph needs: No travel history: recent (cross-country move) seatbelt use: sometimes water heater temp set < 120 deg: Yes working smoke detector in home: Yes fire extinguisher in home: No carbon monox detector in home: Yes firearms in home: No Smoking Status: Current some day smoker Tobacco: How many years used: 5 (off and on) second hand exposure: Yes ( vapes) alcohol intake: former (binge drinking 3-4 days/week prior to ) substance use type: marijuana (agrees not to use while /) during the past year weight has: remained stable well-balanced diet: about half the time daily servings fruits/ve-4 caffeine: Yes (occasional small cup coffee in AM) Type(s) of exercise: walking frequency: 1-2 times per week Smoking Status: Current some day smoker tobacco type: vaping Exam <Quynh Sands PA-C - Last Filed: 06/07/25 17:39> Narrative Exam Narrative: GENERAL: 24 year old patient appears stated age. Well-developed patient, in no acute distress. HEAD: Atraumatic. Normocephalic. NECK: Trachea midline. Cervical ROM intact. CARDIOVASCULAR: Regular rate RESPIRATORY: ?Nonlabored respirations. ?Speaking in clear, full sentences.? EXTREMITIES: Subjective pain on anterior medial joint line of left knee. There is some reproducible tenderness with deep palpation of this area. No tenderness to palpation of patella or patellar tendon or quadriceps tendon. No pain with active or passive flexion or extension of the knee. No reproducible joint laxity. No calf swelling or tenderness. Strong DP and PT pulses on bilateral feet and brisk capillary refill in the feet. 5/5 bilateral knee flexion- extension strength intact. BACK: Nontender without deformity or crepitance. No flank tenderness. NEURO: AOx3. ?Clear speech. ?Moves all 4 extremities appropriately. SKIN: Faint healing bruise on left anterior ankle. Otherwise skin is warm and dry with no redness, increased warmth or skin changes. Initial Vital Signs Initial Vital Signs: Vital Signs Temperature 98 F 06/07/25 15:46 Pulse Rate 86 06/07/25 15:46 Respiratory Rate 20 06/07/25 15:46 Blood Pressure 123/77 06/07/25 15:46 Pulse Oximetry 100 06/07/25 15:46 Oxygen Delivery Method Room Air 06/07/25 15:46 <Hina Pollard MD - Last Filed: 06/08/25 07:41> Initial Vital Signs Initial Vital Signs: Vital Signs Temperature 98 F 06/07/25 15:46 Pulse Rate 86 06/07/25 15:46 Respiratory Rate 20 06/07/25 15:46 Blood Pressure 123/77 06/07/25 15:46 Pulse Oximetry 100 06/07/25 15:46 Oxygen Delivery Method Room Air 06/07/25 15:46 Course <Quynh Sands PA-C - Last Filed: 06/07/25 17:39> Orders Ordered: ED Orders 06/07/25 15:50 XR knee LT 3V Stat Vital Signs Vital signs: Vital Signs - 8 hr 06/07/25 15:46 Temperature 98 F Pulse Rate 86 Respiratory Rate 20 Blood Pressure 123/77 Pulse Oximetry 100 Oxygen Delivery Method Room Air <Hina Pollard MD - Last Filed: 06/08/25 07:41> Orders Ordered: ED Orders 06/07/25 15:50 XR knee LT 3V Stat Vital Signs Vital signs: Vital Signs - 8 hr 06/07/25 15:46 Temperature 98 F Pulse Rate 86 Respiratory Rate 20 Blood Pressure 123/77 Pulse Oximetry 100 Oxygen Delivery Method Room Air MDM - Extremity (Nontraumatic) <Quynh Sands PA-C - Last Filed: 06/07/25 17:39> Medical Records Attestation: I reviewed the patient's medical records. Imaging Data Left Knee X-Ray: Radiologist's Impression: PROCEDURE: XR KNEE LT 3V INDICATIONS: knee pain TECHNIQUE: 3 views of the knee were acquired. COMPARISON: None. FINDINGS: Bones: No fractures or dislocations. No suspicious bony lesions. Soft tissues: No joint effusion. No suspicious soft tissue calcifications. IMPRESSION: No acute bony abnormality or significant effusion. Dictated by: Ramakrishna Murphy M.D. on 06/07/2025 at 15:23 Approved by: Ramakrishna Murphy M.D. on 06/07/2025 at 15:24 [facility] Narrative Medical decision making narrative: 24-year-old female with no reported past medical history who presents to the emergency department for nontraumatic left knee pain x3 days. Differential diagnosis includes but is not limited to left knee sprain, strain, fracture, dislocation, bony tumor, ligament injury, meniscus injury, patellofemoral syndrome, tendinitis, effusion, etc. Left knee x-ray obtained in triage. On physical exam, patient is in no acute distress, nontoxic-appearing, all vital signs within normal limits, left knee grossly unremarkable with normal physical exam, normal appearance. Patient has subjective pain and reproducible tenderness with deep palpation of the anterior medial left knee. There is no swelling, effusion, erythema or increased warmth. Bilateral lower extremities are neurovascularly intact. X-rays negative and shows no effusion. Patient's left knee was placed into an Khari wrap and she was provided with crutches for support. Recommended rice therapy, she also requests prescription for 800 ibuprofen which I am agreeable to but stressed the importance of taking with food and only taking up to 3 times daily. Advised to follow up with [facility] for persistent symptoms and discuss possible patellofemoral syndrome given her recent increase in long distance running. Patient verbalized understanding of all information is agreeable with the plan, ambulatory and stable for discharge home. Discharge Plan Departure Patient Disposition: Home Clinical Impression: Acute pain of left knee Instructions: DI for Knee Pain Activity Restrictions/Additional Instructions: Dear Ms. Madrid, Thank you for coming to the emergency department. Today you were evaluated for left knee pain. Your x-ray does not reveal any abnormalities. However x-rays do not tell us about important tendons or ligaments, and other soft tissues. At this time I suspect he may be dealing with patellofemoral pain syndrome, AKA runner's knee which can be caused by over use. At this time I recommend using the prescribed ibuprofen in addition to [id number] Tylenol to help with the pain, and only performing gentle exercise until your symptoms improve. You may call to schedule an appointment with [facility] for further evaluation. Please take Ibuprofen (Motrin/Advil) or Acetaminophen (Tylenol) for pain. These are available over the counter. You may take Ibuprofen 400-800 mg every 8 hours with food for pain. You may also take Acetaminophen 650 mg every 4-6 hours for pain. Do not exceed 3000 mg of Tylenol a day as this can cause liver damage. Do not drink alcohol with either of these medications. Please use RICE therapy for your pain in addition to ibuprofen/acetaminophen. Rest the painful area. Ice the area of pain/swelling for at least 15 minutes, 4x a day. Compress the area of swelling using a brace, wrap, or splint if applied. Elevate the painful or swollen extremity by supporting it above the level of the heart with pillows when sitting or laying. Please follow up with your primary care doctor within the next 2-3 days for ER follow-up. (If you do not have a PCP you can call [phone]. ?to schedule an appointment with an [facility] Primary Care Provider) IF YOU DEVELOP ANY NEW OR WORSENING SYMPTOMS, RETURN TO THE ER! Please read the attached instructions, they highlight more specific treatments and interventions for you at home. Thank you for letting me participate in your care, Quynh Sands PA-C Prescriptions: New ibuprofen 800 mg tablet 800 mg PO Q8H PRN (Reason: pain) Qty: 30 0RF No Action calcium carbonate [Tums] 200 mg calcium (500 mg) tablet,chewable 200 mg PO QID PRN (Reason: Heartburn) ibuprofen 600 mg Tablet 600 mg PO Q6HR PRN (Reason: Pain, Mild (1-3)) Qty: 60 2RF docusate sodium 100 mg capsule 100 mg PO BID PRN (Reason: constipation) Qty: 30 0RF sulfamethoxazole-trimethoprim [Bactrim] 400-80 mg tablet 1 tab PO BID Qty: 10 0RF phenazopyridine [Pyridium] 200 mg tablet 200 mg PO TID Qty: 6 0RF Referrals: Provider,Lena FREGOSO [Primary Care Provider, [facility]] Stand Alone Forms: Patient Portal/API ED Sign-out <Hina Pollard MD - Last Filed: 06/08/25 07:41> Cosign ED Attending Cosignature Attestation: I was immediately available in the department for consultation throughout this patient's visit. Hina Pollard MD
[2025-06-07 17:34] VITALS: BP 126/67; PULSE 56; RESP 16; TEMP 36.6; O2SAT 99
== END 2025-06-07 17:34 | disposition home or self-care (01) ==
PROVIDERS: Emergency Provider Physician Assistant
DX: M25.562 Pain in left knee (principal)
CPT/HCPCS: 73562; 99282; 99283